=== PATIENT | male | born 1965 | race Caucasian/White ===

== ENCOUNTER 2020-07-20 23:51 | Emergency (ER) | payer SELFPAY ==
[~2020-07-20] VITALS: Ht 167.6 cm; Wt 72.6 kg
--- NOTE | 2020-07-20 23:55 | NUR ---
SEEN AND EXAMINED BY LEIV WITH ORDERS, AND CARRIED OUT
[2020-07-21 00:05] VITALS: BP 138/70
[2020-07-21 00:21] VITALS: BP 138/70
--- NOTE | 2020-07-21 00:30 | NUR ---
PCR AND MONTY COLLECTED, SPECIMENS GIVEN TO LAB.
--- NOTE | 2020-07-21 01:33 | NUR ---
Patient discharged with v/s stable. Written and verbal after care instructions given and explained. Patient alert, oriented and verbalized understanding of instructions. Ambulatory with steady gait. All questions addressed prior to discharge. ID band removed. Patient advised to follow up with PMD. Rx of AMOXICILLIN AND AZITHRYOMYCIN given. Patient educated on indication of medication including possible reaction and side effects. Opportunity to ask questions provided and answered.
== END 2020-07-21 01:33 | disposition home or self-care (01) ==
LOC: EDBD 23:51 → MED 23:51
DX: U07.1 COVID-19 (principal); J12.89 Other viral pneumonia; E78.00 Pure hypercholesterolemia, unspecified
CPT/HCPCS: 71045; 87426; 99284; U0003